=== PATIENT | male | born 1985 | race Caucasian/White ===

== ENCOUNTER 2025-01-22 05:47 | Emergency (ER) | payer SELFPAY ==
--- NOTE | ~2025-01-22 | CT_ITS ---
EXAMINATION: CT BRAIN W/O DATE: 01/22/2025 07:51 INDICATION: Altered mental status TECHNIQUE: Computed tomography (CT) of the head was performed without intravenous contrast. The dose- length product was 605.33 mGy-cm. COMPARISON: No prior studies for comparison. FINDINGS: Normal brain parenchymal volume for age. Normal braswell-white differentiation. No acute intrac ranial hemorrhage, infarction, mass or mass effect. No ventriculomegaly or midline shift. Midline sagittal images demonstrate a normal corpus callosum, c raniovertebral junction and sella turcica. Basilar cisterns are patent. Paranasal sinuses and mastoids are pneumatized. No depressed skull fractures. IMPRESSION: 1. No acute intracranial abnormality. Reviewed, dictated and finalized at location B.
[2025-01-22 05:57] VITALS: BP 139/92; PULSE 86; RESP 20; TEMP 36.7; O2SAT 99
[2025-01-22 06:15] LABS: Basophils Percent Auto 0.5 % (0.2-1.2); Eosinophils Absolute Auto 0.1 K/mm3 (0-0.3); Eosinophils Percent Auto 0.6 % (0-4.4); Hematocrit 42.2 % (42.0-52.0); Hemoglobin 15.3 g/dL (14.0-18.0); Immature Granulocyte Absolute 0.03 K/mm3 (0.00-0.031); Immature Granulocyte Percent A 0.3 % (0-0.5); Lymphocytes Absolute Auto 1.02 K/mm3 (0.9-3.2); Lymphocytes Percent Auto 11.6 % (18.3-44.2); Mean Corpuscular HGB Conc 36.3 g/dl (32-36); Mean Corpuscular Hemoglobin 31.5 pg (26-34); Mean Platelet Volume 10.4 fl (7.4-10.4); Monocytes Absolute Auto 0.2 K/mm3 (0.1-0.6); Monocytes Percent Auto 2.5 % (2.6-8.5); Neutrophils Absolute Auto 7.4 K/mm3 (1.3-6.7); Neutrophils Percent Auto 84.5 % (45.5-73.1); Platelet Count Result 329 k/mm3 (150-375); Red Blood Count 4.85 M/mm3 (4.6-6.20); Red Cell Distribution Width 11.9 % (11.5-14.5); White Blood Count 8.8 K/mm3 (4.5-10.0)
[2025-01-22 06:23] LABS: Add Urine Microscopic? YES; Appearance Urine Cloudy (Clear); Bacteria Urine None Seen /hpf; Bilirubin Urine Negative (Negative); Blood Urine Negative (Negative); Color Urine Yellow (Yellow); Glucose Urine UA Negative (Negative); Ketones Urine Negative (Negative); Leukocyte Esterase Ur Negative LEU/UL (Negative); Nitrate Urine Negative (Negative); Non Pathogenic Casts 0-2; Protein Urine Negative (Negative); RBC Urine 0-2 /hpf (0-2); Squamous Epithelial Cell Urine None Seen /hpf (Few); WBC Urine 0-5 /hpf (0-3); pH Urine 7.5 (5.0-9.0)
[2025-01-22 06:26] LABS: Alanine Aminotransferase 20 U/L (6-50); Albumin Level 4.5 g/dL (3.5-5.1); Alkaline Phosphatase 59 U/L (38-126); Anion Gap 12 mmol/L (4-12); Aspartate Amino Transferase 22 U/L (17-59); Bilirubin,Total 0.6 mg/dL (0.2-1.3); Blood Urea Nitrogen 10 mg/dL (9-20); Calcium 9.7 mg/dL (8.4-10.2); Carbon Dioxide 20 mmol/L (22-30); Chloride 103 mmol/L (98-107); Estimated CRCL calculation 72 ml/min; Estimated Glomerular Filt Rate > 60; Glucose 126 mg/dL (65-110); Potassium 4.1 mmol/L (3.4-5.0); Sodium 135 mmol/L (137-145)
[2025-01-22 06:29] LABS: Ethanol < 10 mg/dL (<10)
[2025-01-22 06:34] LABS: Amphetamine Screen Urine Negative (Negative); Barbiturate Screen Urine Negative (Negative); Benzodiazepines Screen Urine Positive (Negative); Cannabinoid Screen Urine Positive (Negative); Cocaine Screen Urine Negative (Negative); Methadone Screen Urine Negative (Negative); Opiate Screen Urine Negative (Negative); Phencyclidine Screen Urine Negative (Negative)
[2025-01-22 06:54] LABS: Influenza A QL RT-PCR Negative (Negative); Influenza B QL RT-PCR Negative (Negative); RSV RNA, RT-PCR Negative (Negative); SARS-CoV-2 RNA PCR Negative (Negative)
--- NOTE | 2025-01-22 07:16 | PC.NURSE ---
Lab called to add on additional lab orders
--- NOTE | 2025-01-22 07:34 | PC.NURSE ---
Lab called X2 about add on labs
--- NOTE | 2025-01-22 07:35 | PC.NURSE ---
Patient sitting in room. Patient calm and cooperative at this time. Process of seeing provider and crisis coming for evaluation explained to patient. Patient verbalized understanding. Patient adamant about not wanting to return to [place] or [place] due to being treated poorly .
--- OUTSIDE RECORDS SUMMARY | 2025-01-22 07:41 | XMS_ITS | Referral Summary ---
Author Organization [facility] Address [address] [place] [address] Care Team Providers Care Teacher Industrial Arts Name Role Phone Rachele Meza MD Primary Care Provider [phone] Hiro Francis DPT Unavailable [phone] Melissa Brower B.A. Unavailable Eduardo Fairchild PTA Unavailable Unavailable Frank Bautista MD Unavailable Allergies No known active allergies Medications lamoTRIgine (LaMICtal) 200 mg tablet Take 200 mg by mouth. Active triamcinolone (NASACORT) 55 mcg nasal inhaler Administer 2 sprays into each nostril daily. 16.5 g 3 8 Active ibuprofen (ADVIL,MOTRIN) 800 mg tablet Take 1 tablet (800 mg total) by mouth 3 (three) times a day as needed for pain. Take with food. 30 tablet 8 Active cyclobenzaprine (FLEXERIL) 10 mg tablet Take 1 tablet (10 mg total) by mouth 2 (two) times a day as needed for muscle spasms. 20 tablet 8 Active HYDROcodone-bill taminophen (NORCO) 5-325 mg per tabletIndicatio ns:Pain Take 1-2 tablets by mouth every 4 (four) hours as needed for pain (1 tablet for mild to moderate pain or 2 tablets for severe pain). Do not exceed 8 tablets/day. 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 Gender Identity Not on file Sexual Orientation Not on file Last Filed Vital Signs Vital Sign Reading Time Taken Comments Blood Pressure 119/78 01/13/2019 2:50 PM CDT Pulse 89 06/09/2018 12:28 AM CDT Temperature 37.1 C (98.7 F) 06/08/2018 9:19 PM CDT Respiratory Rate 16 06/09/2018 12:28 AM CDT Oxygen Saturation 96% 06/09/2018 12:28 AM CDT Inhaled Oxygen Concentration - - Weight 63.5 kg (140 lb) 01/13/2019 2:50 PM CDT Height 175.3 cm (5' 9 ) 01/13/2019 2:50 PM CDT Body Mass Index 20.67 01/13/2019 2:50 PM CDT Plan of Treatment Not on file Insurance CIGNA CIGNA Care Teams Teacher Industrial Arts Relationship Specialty Start Date End Date Rachele Meza MD [address] [place] [address] PCP - General Internal Medicine 06/23/18 Hiro Francis DPT [address] [facility] [address] [place] [address] Physical Therapist Physical Therapy 06/29/18 Melissa Brower BSanam 06/29/18 Eduardo Crockett [facility] Dry End Operator Physical Therapy 07/10/18 Frank Bautista MD [address] [place] [address] Consulting Physician Neurosurgery 07/28/18
--- OUTSIDE RECORDS SUMMARY | 2025-01-22 07:41 | XMS_ITS | Clinical Summary ---
Author Organization [facility] Address [address] [place] [address] Care Team Providers Care Outdoor Advertising Leasing Agent Name Role Phone Pcp, No Primary Care Provider [phone] Allergies No known active allergies Encounters Date Type Department Care Team Description 01/04/2025 8:04 PM QUENCHING MACHINE OPERATOR - 01/04/2025 9:18 PM QUENCHING MACHINE OPERATOR Emergency [facility] Emergency Dept [address] [place] [address] Kristal Grewal MD Concussion (Primary Dx); Dizziness; Hyponatremia Discharge Disposition: Home or Self Care 01/04/2025 Travel from Last 3 Months Social History Tobacco Use Types Packs/Day Years Used Date Smoking Tobacco: Never Assessed NCSS - Interpersonal Safety Answer Date Recorded Do you feel physically and e motionally safe where you currently live? Yes 01/04/2025 Within the past 12 months, h ave you been hit, slapped, kicked or otherwise physically hurt by someone? No 01/04/2025 Within the past 12 months, h ave you been humiliated or emotionally abused in other ways by your partner or ex-partner? No 01/04/2025 Interpersonal Safety Answer Date Record ed Unsafe Living Environment Not on file 2024 Abused by partner or someone else Not on file 01/04/2025 Is anyone misusing your pippa y, food, housing, and/or not allowing you to get medical treatment? 2 01/04/2025 Sex and Gender Information Value Date Recorded Sex Assigned at Not on file Legal Sex Male 5:32 PM QUENCHING MACHINE OPERATOR Gender Identity Not on file Sexual Orientation Not on file Last Filed Vital Signs Vital Sign Reading Time Taken Comments Blood Pressure 141/107 01/04/2025 5:36 PM QUENCHING MACHINE OPERATOR Pulse 83 01/04/2025 5:36 PM QUENCHING MACHINE OPERATOR Temperature 36.1 C (97 F) 01/04/2025 5:36 PM QUENCHING MACHINE OPERATOR Respiratory Rate 16 01/04/2025 5:36 PM QUENCHING MACHINE OPERATOR Oxygen Saturation 99% 01/04/2025 5:36 PM QUENCHING MACHINE OPERATOR Inhaled Oxygen Concentration - - Weight - - Height - - Body Mass Index - - Plan of Treatment Health Maintenance Due Date Last Done Comments Annual Wellness Exam with PC P (Rolling Yr) 1985 Hepatitis C Screening 2001 DTaP,Tdap,and Td Vaccines (1 - Tdap) 2002 Hepatitis B Vaccines (1 of 3 - 19+ 3-dose series) 2002 Influenza Vaccine (#1) 2024 COVID-19 Vaccine (3 - 2023-2 5 season) 2024 02/27/2021, 02/06/2021 Hepatitis A Vaccines Aged Out No long er eligible based on patient's age to complete this topic Meningococcal Vaccine Aged Out No george paramjit eligible based on patient's age to complete this topic Pneumococcal Vaccine: Peds (0-5 Yrs) or At-Risk Patients (6-49 Yrs) Aged Out No longer eligible b ased on patient's age to complete this topic Procedures Procedure Name Priority Date/Time Associated Diagnosis Comments CT BRAIN WO CONTRAST STAT 01/04/2025 8:34 PM QUENCHING MACHINE OPERATOR ECG 12-LEAD STAT 01/04/2025 6:14 PM QUENCHING MACHINE OPERATOR MORPHOLOGY STAT 01/04/2025 6:03 PM QUENCHING MACHINE OPERATOR ETHANOL (ALCOHOL) LEVEL, BLOOD STAT 01/04/2025 6:03 PM QUENCHING MACHINE OPERATOR COMPREHENSIVE METABOLIC PANEL STAT 01/04/2025 6:03 PM QUENCHING MACHINE OPERATOR CBC WITH DIFFERENTIAL STAT 01/04/2025 6:03 PM QUENCHING MACHINE OPERATOR from Last 3 Months Results * CT Brain Without Contrast (01/04/2025 8:34 PM QUENCHING MACHINE OPERATOR) Anatomical Region Laterality Modality Head Computed Tomogra phy 01/04/2025 8:39 PM QUENCHING MACHINE OPERATOR Impressions 01/04/2025 8:50 PM QUENCHING MACHINE OPERATOR No evidence of acute intracranial hemorrhage. The CT scan was performed with attention to patient radiation dose reduction, as low as reasonably achievable (ALARA), while maintaining diagnostic image quality. At least one of the following dose reduction techniques was used: Automated exposure control, adjustment of the mA and/or KV according to patient size or use of iterative reconstruction technique Number of known CT and cardiac nuclear medicine studies in the past 12 months is permanently stored in the patient's medical record and can be provided upon request. Narrative 01/04/2025 8:50 PM QUENCHING MACHINE OPERATOR NONCONTRAST CT OF THE HEAD HISTORY: Confusion and dizziness. COMPARISON: None TECHNIQUE: CT of the head was performed without intravenous contrast. FINDINGS: BRAIN PARENCHYMA: No acute parenchymal hemorrhage. No mass effect or herniation. Adair-white differentiation is maintained. White matter is within normal limits for age. VENTRICLES/EXTRA-AXIAL SPACES:Cortical sulci and ventricular system are nonenlarged. No hydrocephalus or extra-axial fluid collections. EXTRACRANIAL STRUCTURES: No evidence of acute fracture. Visualized paranasal sinuses and mastoids are clear. The orbits are grossly unremarkable. Procedure Note Brianne Monroe MD - 01/04/[address] OF THE HEAD HISTORY: Confusion and dizziness. COMPARISON: None TECHNIQUE: CT of the head was performed without intravenous contrast. FINDINGS: BRAIN PARENCHYMA: No acute parenchymal hemorrhage. No mass effect or herniation. Adair-white differentiation is maintained. White matter is within normal limits for age. VENTRICLES/EXTRA-AXIAL SPACES:Cortical sulci and ventricular system are nonenlarged. No hydrocephalus or extra-axial fluid collections. EXTRACRANIAL STRUCTURES: No evidence of acute fracture. Visualized paranasal sinuses and mastoids are clear. The orbits are grossly unremarkable. IMPRESSION: No evidence of acute intracranial hemorrhage. The CT scan was performed with attention to patient radiation dose reduction, as low as reasonably achievable (ALARA), while maintaining diagnostic image quality. At least one of the following dose reduction techniques was used: Automated exposure control, adjustment of the mA and/or KV according to patient size or use of iterative reconstruction technique Number of known CT and cardiac nuclear medicine studies in the past 12 months is permanently stored in the patient's medical record and can be provided upon request. Number 1 [employer] Xiomara LUND-C IMG CT ORDERABLES Final Result * ECG 12-Lead (01/04/2025 6:14 PM QUENCHING MACHINE OPERATOR) 01/04/2025 6:14 PM QUENCHING MACHINE OPERATOR 01/05/2025 7:06 AM QUENCHING MACHINE OPERATOR Narrative [facility] - 01/04/2025 6:14 PM QUENCHING MACHINE OPERATOR --- Final ECG Report --- NORMAL SINUS RHYTHM NORMAL ECG NO PREVIOUS ECGS AVAILABLE Procedure Note Srinivas Max MD - 01/05/2025 --- Final ECG Report --- NORMAL SINUS RHYTHM NORMAL ECG NO PREVIOUS ECGS AVAILABLE BackTypenabil Guiterrez PA-C ECG ORDERABLES Final Result [facility] [address] [place] [address] * (ABNORMAL) Morphology (01/04/2025 6:03 PM QUENCHING MACHINE OPERATOR) RBC Morphology See Morphology 01/04/2025 7:12 PM [facility] Comment:Giant Platelets Pres ent Smear visually reviewed by Technologist Polychromasia 1+(A) Not Present 01/04/2025 7:12 PM [facility] Blood Butterfly / Unknown 01/04/2025 6:03 PM QUENCHING MACHINE OPERATOR 01/04/2025 6:14 PM QUENCHING MACHINE OPERATOR us Xiomara Gutierrez PA-C LAB STAT BLOOD ORDERABLES Alexa l Result [facility] [address] [place] [address] * (ABNORMAL) CBC with Differential (01/04/2025 6:03 PM QUENCHING MACHINE OPERATOR) Auto WBC 7.0 3.7 - 10.4 10*3 /uL 01/04/2025 7:12 PM [facility] NRBCs Absolute Count 0.00 <=0.01 10*3 /uL 01/04/2025 7:12 PM [facility] NRBC Relative percent 0 <=0 /100 WBC 01/04/2025 7:12 PM [facility] RBC 4.65 4.35 - 5.56 10*6 /uL 01/04/2025 7:12 PM [facility] Hemoglobin 14.5 13.2 - 16.8 g/dL 01/04/2025 7:12 PM [facility] Hematocrit 39.0(L) 39.2 - 48.8 % 01/04/2025 7:12 PM [facility] MCV 83.9 81.2 - 96.7 fL 01/04/2025 7:12 PM [facility] MCH 31.2 27.5 - 33.1 pg 01/04/2025 7:12 PM [facility] MCHC 37.2(H) 32.1 - 36.1 g/dL 01/04/2025 7:12 PM [facility] RDW 12.7 12.4 - 14.3 % 01/04/2025 7:12 PM [facility] Platelets 305 131 - 340 10*3/uL 01/04/2025 7:12 PM [facility] MPV 10.2 8.7 - 12.7 fL 01/04/2025 7:12 PM [facility] Neutrophils Relative 66.3 % 01/04/2025 7:12 PM [facility] Immature Granulocytes Relative 0.3 % 01/04/2025 7:12 PM [facility] Lymphocytes Relative 22.5 % 01/04/2025 7:12 PM [facility] Monocytes Relative 8.5 % 01/04/2025 7:12 PM [facility] Eosinophils Relative 2.0 % 01/04/2025 7:12 PM [facility] Basophils Relative 0.4 % 01/04/2025 7:12 PM [facility] Neutrophils Absolute 4.7 1.6 - 6.4 10*3/uL 01/04/2025 7:12 PM [facility] Immature Granulocytes Absolute 0.0 0.0 - 0.1 10*3/uL 01/04/2025 7:12 PM [facility] Lymphocytes Absolute 1.6 0.6 - 3.3 10*3/uL 01/04/2025 7:12 PM [facility] Monocytes Absolute 0.6 0.2 - 1.2 10*3/uL 01/04/2025 7:12 PM [facility] Eosinophils Absolute 0.1 0.0 - 0.4 10*3/uL 01/04/2025 7:12 PM [facility] Basophils Absolute 0.0 0.0 - 0.1 10*3/uL 01/04/2025 7:12 PM [facility] Blood Butterfly / Unknown 01/04/2025 6:03 PM QUENCHING MACHINE OPERATOR 01/04/2025 6:14 PM QUENCHING MACHINE OPERATOR BackTypen Spectrum5ole PA-C LAB STAT BLOOD ORDERABLES Alexa l Result [facility] [address] [place] [address] * Ethanol (Alcohol) Level, Blood (01/04/2025 6:03 PM QUENCHING MACHINE OPERATOR) Ethanol Level <0.010 <0.010 g/dL 01/04/2025 6:38 PM [facility] Blood Butterfly / Unknown 01/04/2025 6:03 PM QUENCHING MACHINE OPERATOR 01/04/2025 6:14 PM QUENCHING MACHINE OPERATOR BackTypen Spectrum5ole PA-C LAB STAT BLOOD ORDERABLES Alexa l Result [facility] [address] [place] [address] * (ABNORMAL) Comprehensive Metabolic Panel (01/04/2025 6:03 PM [facility]) Total Protein 6.5 5.7 - 8.2 g/dL 01/04/2025 6:39 PM [facility] Albumin 4.4 3.3 - 5.2 g/dL 01/04/2025 6:39 PM [facility] Globulin 2.1 1.9 - 3.5 g/dL 01/04/2025 6:39 PM [facility] Comment:Please note new refe rence range. A/G Ratio 2.1 1.0 - 2.6 01/04/2025 6:39 PM [facility] Total Bilirubin 0.8 0.1 - 1.2 mg/dL 01/04/2025 6:39 PM [facility] Alkaline Phosphatase 53 46 - 116 U/L 01/04/2025 6:39 PM [facility] AST 18 13 - 40 U/L 01/04/2025 6:39 PM [facility] ALT 16 10 - 49 U/L 01/04/2025 6:39 PM [facility] BUN 9 9 - 23 mg/dL 01/04/2025 6:39 PM [facility] Creatinine 1.13 0.60 - 1.30 mg/dL 01/04/2025 6:39 PM [facility] BUN/Creatinine Ratio 8.0(L) 10.0 - 20.0 01/04/2025 6:39 PM [facility] Calcium 9.5 8.7 - 10.4 mg/dL 01/04/2025 6:39 PM [facility] Glucose 94 70 - 99 mg/dL 01/04/2025 6:39 PM [facility] Sodium 128(L) 136 - 145 mmol/L 01/04/2025 6:39 PM [facility] Potassium 3.8 3.5 - 5.1 mmol/L 01/04/2025 6:39 PM [facility] Chloride 95(L) 98 - 107 mmol/L 01/04/2025 6:39 PM [facility] CO2 22 21 - 32 mmol/L 01/04/2025 6:39 PM QUENCHING MACHINE OPERATOR [facility] Anion Gap 11 4 - 12 01/04/2025 6:39 PM QUENCHING MACHINE OPERATOR [facility] GFR >60 >60 mL/min/1. 73 sq.m 01/04/2025 6:39 PM QUENCHING MACHINE OPERATOR [facility] Comment:Calculation based on the Chronic Kidney Disease Epidemiology Collaboration (CKD-EPI) equation refit without adjustment for race. Blood Butterfly / Unknown 01/04/2025 6:03 PM QUENCHING MACHINE OPERATOR 01/04/2025 6:14 PM QUENCHING MACHINE OPERATOR us Xiomara Gutierrez PA-C LAB STAT BLOOD ORDERABLES Alexa l Result [facility] [address] [place] [address] from Last 3 Months Care Teams Outdoor Advertising Leasing Agent Relationship Specialty Start Date End Date Pcp, No [address] [place] [address] PCP - General 01/04/25
--- OUTSIDE RECORDS SUMMARY | 2025-01-22 07:41 | XMS_ITS | Clinical Summary ---
Author Organization [facility] Address [address] [place] [address] Care Team Providers Care Sheet Metal Assembler And Riveter Name Role Phone Rachele Meza MD Primary Care Provider [phone] Hiro Francis DPT Unavailable [phone] Melissa Brower B.A. Unavailable Eduardo Fairchild PTA Unavailable Unavailable Frank Bautista MD Unavailable [phone] Allergies No known active allergies Medications lamoTRIgine [...] SARS-CoV-2 Monovalent Vaccination (12+ Yrs) PURPLE 02/27/2021,02/06/2021 Surgical History Surgery Date Site/Laterality Comments HERNIA REPAIR WISDOM TOOTH EXTRACTION Medical History Medical History Date Comments Bipolar disorder (HCC) Family History Medical History Relation Name Comments No Known Problems Father No Known Problems Mother Relation Name Status Comments Father Mother Social History Tobacco Use Types Packs/Day Years Used Date Smoking Tobacco: Former Smokeless Tobacco: Never Personal Safety Answer Date Recorded Getting School Help Needed Not on file 12/28 Sex and Gender Information Value Date Recorded Sex Assigned at Not on file Legal Sex Male 9:54 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 Gender Identity Not on file Sexual Orientation Not on file Obstetrics History Last Filed Vital Signs Vital Sign Reading [...] 01/13/2019 2:50 PM CDT Plan of Treatment Health Maintenance Due Date Last Done Comments Depression Screening 1983 Hepatitis C Screening 1983 Varicella Vaccines (1 of 2 - 13+ 2-dose series) 1996 Hepatitis B Screening 2001 Regular Well Visit/Exam 18-64 2001 Covid-19 Vaccine (3 - 2023-2 5 season) 2024 02/27/2021, 02/06/2021 Influenza Vaccine (#1) 2024 9, 08/06/2018 DTaP/Tdap/Td Vaccine (2 - Td or Tdap) 06/16/2027 06/16/2017 HPV Vaccines Aged Out No longer eligi ble based on patient's age to complete this topic Pneumococcal vaccine <65 Aged Out No longer eligible based on patient's age to complete this topic Insurance CIGNA CIGNA Care Teams Sheet Metal Assembler And Riveter Relationship Specialty Start Date End Date Rachele Meza MD [address] [facility] [address] [place], [place] [id number] PCP - General Internal Medicine 06/23/18 Hiro Francis DPT [address] [facility] [address] [place], [place] [id number] Physical Therapist Physical Therapy 06/29/18 Melissa Brower B.A. 06/29/18 Eduardo Crockett [facility] Lab Systems Analyst Physical Therapy 07/10/18 Frank Bautista MD [address] [place] [address] Consulting Physician Neurosurgery 07/28/18
[2025-01-22 07:44] LABS: Magnesium 1.8 mg/dL (1.6-2.3)
--- NOTE | 2025-01-22 08:15 | ED.GENADULT ---
HPI - General Adult General Chief complaint: Psychiatric Symptoms Stated complaint: anxiety/hallucinations Time Seen by Provider: 01/22/25 06:57 History of Present Illness HPI narrative: 39-year-old male present to the emergency department for evaluation increased paranoia and delusions of gangs attempting to harm him. Patient does have history of alcohol withdrawal, bipolar, anxiety, schizophrenia, schizoaffective disorder. Patient states he was recently at [facility] for alcohol withdrawal and was transferred to [place]. Patient states he has been getting his medications there but he is unsure of what doses they are giving him. Patient presented to emergency department today requesting inpatient hospitalization because he does not feel safe at [place] due to increasing paranoia. Related Data Allergies Allergy/AdvReac Type Severity Reaction Status Date / Time No Known Allergies Allergy Verified 01/22/25 08:21 Review of Systems Review of Systems: All systems reviewed & are unremarkable except as noted in HPI and below PMFSH Social History Social History Substance use type: former substance user and unknown Exam Narrative: APPEARANCE: Well appearing, no pain, no distress, well-nourished. HEAD: normocephalic, atraumatic. EYES: PERRLA/EOMI, conjunctivae clear. NOSE: Normal no drainage EARS:TMS clear with good light reflex. THROAT: Pharynx clear, no exudate. NECK: Supple. No adenopathy, no masses. RESPIRATORY: Airway patent, respirations nonlabored. Clear to auscultation bilaterally, no rales, rhonchi, wheezing. CARDIOVASCULAR: Regular rate and rhythm without murmurs rubs or gallops. ABDOMINAL: Soft, nontender, nondistended, normal bowel sounds MUSCULOSKELETAL: Moves all extremities. Strength/ROM intact, No edema, No calf tenderness. NEURO: Alert. Cranial nerves II through XII intact. Good gait. Good coordination SKIN: Warm, dry. Normal Color PSYCHIATRIC: Anxious affect Course Vital Signs Vital signs: Vital Signs Temperature 98.0 F 01/22/25 05:57 Pulse Rate 86 01/22/25 05:57 Respiratory Rate 20 01/22/25 05:57 Blood Pressure 139/92 H 01/22/25 05:57 Pulse Oximetry 99 01/22/25 05:57 Oxygen Delivery Room Air 01/22/25 05:57 Temperature 98.0 F 01/22/25 05:57 Pulse Rate 86 01/22/25 05:57 Respiratory Rate 20 01/22/25 05:57 Blood Pressure 139/92 H 01/22/25 05:57 Pulse Oximetry 99 01/22/25 05:57 Oxygen Delivery Room Air 01/22/25 05:57 Medical Decision Making MDM Narrative Medical decision making narrative: 19-year-old male present to the emergency department evaluation for increased paranoid delusions. Patient was able to be least temp earlier reassured that the gangs [facility] or not here to get him and that he is in a safe environment at this time. Patient was willing to have some Ativan for anxiety control. Patient is requesting inpatient psychiatric hospitalization. Patient is afebrile with no leukocytosis and a hemoglobin of 15.3 P. Patient has no significant abnormalities on his CMP and TSH is within normal limits. UA was negative for infection. Patient did test positive for benzos and cannabinoids. Patient states he had been Librium up to approximately 2 weeks ago. Patient was negative for influenza RSV and for COVID patient's head CT was negative. 8:21 a.m. patient is medically cleared for evaluation by crisis. Patient is medically cleared for transportation and inpatient hospitalization as needed. Patient preferred to go to [facility] but they do not have any psych beds available. Patient does not meet inpatient criteria and is not a threat to himself. Patient prefers to be discharged to home. Patient does have family members who are coming to pick him up. Prior to discharge patient denies any homicidal or suicidal ideation. Patient was prescribed his home medication propanolol, Lamictal and Seroquel. Patient was also given a small prescription for Ativan. Differential Diagnosis Differential Diagnosis: Bipolar, schizophrenia, delusional, subdural hematoma, subarachnoid hemorrhage, benzo withdrawal Vital Signs Vital Signs: Vital Signs Temperature 98.0 F 01/22/25 05:57 Pulse Rate 86 01/22/25 05:57 Respiratory Rate 20 01/22/25 05:57 Blood Pressure 139/92 H 01/22/25 05:57 Pulse Oximetry 99 01/22/25 05:57 Oxygen Delivery Room Air 01/22/25 05:57 Temperature 98.0 F 01/22/25 05:57 Pulse Rate 86 01/22/25 05:57 Respiratory Rate 20 01/22/25 05:57 Blood Pressure 139/92 H 01/22/25 05:57 Pulse Oximetry 99 01/22/25 05:57 Oxygen Delivery Room Air 01/22/25 05:57 Lab Data Lab results reviewed: Yes I reviewed the patient's lab results. 01/22/25 06:06 01/22/25 06:05 Labs: Lab Results 01/22/25 01/22/25 01/22/25 Range/Units 06:05 06:06 06:06 WBC 8.8 (4.5-10.0) K/mm3 RBC 4.85 (4.6-6.20) M/mm3 Hgb 15.3 (14.0-18.0) g/dL Hct 42.2 (42.0-52.0) % MCV 87.0 (80-100) fl MCH 31.5 (26-34) pg MCHC 36.3 H (32-36) g/dl RDW 11.9 (11.5-14.5) % Plt Count 329 (150-375) k/mm3 MPV 10.4 (7.4-10.4) fl Immature Gran % (Auto) 0.3 (0-0.5) % Neut % (Auto) 84.5 H (45.5-73.1) % Lymph % (Auto) 11.6 L (18.3-44.2) % [place] % (Auto) 2.5 L (2.6-8.5) % Eos % (Auto) 0.6 (0-4.4) % Baso % (Auto) 0.5 (0.2-1.2) % Lymph # (Auto) 1.02 (0.9-3.2) K/mm3 [place] # (Auto) 0.2 (0.1-0.6) K/mm3 Eos # (Auto) 0.1 (0-0.3) K/mm3 Baso # (Auto) 0.0 (0.0-0.1) K/mm3 Abs Immat Gran (auto) 0.03 (0.00-0.031) K/mm3 Absolute Neuts (auto) 7.4 H (1.3-6.7) K/mm3 Absolute Nucleated RBC 0.000 (0.0-0.012) K/mm3 Nucleated RBC % 0.0 (0.0-0.2) % Sodium 135 L (137-145) mmol/L Potassium 4.1 (3.4-5.0) mmol/L Chloride 103 (98-107) mmol/L Carbon Dioxide 20 L (22-30) mmol/L Anion Gap 12 (4-12) mmol/L BUN 10 (9-20) mg/dL Creatinine 0.91 (0.7-1.3) mg/dL Estim Creat Clear Calc 72 ml/min Estimated GFR > 60 (59 - ) Glucose 126 H (65-110) mg/dL Calcium 9.7 (8.4-10.2) mg/dL Magnesium 1.8 (1.6-2.3) mg/dL Total Bilirubin 0.6 (0.2-1.3) mg/dL AST 22 (17-59) U/L ALT 20 (6-50) U/L Alkaline Phosphatase 59 (38-126) U/L Total Protein 7.0 (6.3-8.2) g/dL Albumin 4.5 (3.5-5.1) g/dL TSH (Reflex) 1.460 1.440 (0.465-4.68) uIU/mL Urine Color Yellow (Yellow) Urine Appearance Cloudy H (Clear) Urine pH 7.5 (5.0-9.0) Ur Specific [place] 1.020 (1.001-1.035) Urine Protein Negative (Negative) mg/dL Urine Glucose (UA) Negative (Negative) mg/dL Urine Ketones Negative (Negative) mg/dL Ur Blood (Man) Negative (Negative) Urine Nitrate Negative (Negative) Urine Bilirubin Negative (Negative) Urine Urobilinogen 1.0 (<2.0) mg/dL Leukocyte Esterase Rfl Negative (Negative) CHITO/UL Urine RBC 0-2 (0-2) /hpf Urine WBC 0-5 (0-3) /hpf Ur Squamous Epith Cells None seen (Few) /hpf Urine Bacteria None seen /hpf Urine Casts 0-2 Urine Opiates Screen Negative (Negative) Urine Methadone Screen Negative (Negative) Ur Barbiturates Screen Negative (Negative) Ur Phencyclidine Scrn Negative (Negative) Ur Amphetamine Screen Negative (Negative) U Benzodiazepines Scrn Positive A (Negative) Urine Cocaine Screen Negative (Negative) U Cannabinoids Screen Positive A (Negative) Ethyl Alcohol < 10 (<10) mg/dL Influenza A (RT-PCR) Negative (Negative) Influenza B (RT-PCR) Negative (Negative) RSV (RT-PCR) Negative (Negative) SARS-CoV-2 RNA (RT-PCR) Negative (Negative) Imaging Data Radiologist's impression: Impressions Head CT 01/22/25 07:53 IMPRESSION: 1. No acute intracranial abnormality. Discharge Plan Discharge Clinical Impression: Paranoid delusion, Anxiety Patient Disposition: Home, Self-Care Condition: Stable Instructions: Antibiotic Form Additional Instructions: Have close follow-up with your physicians. If you have any worsening symptoms then please call or return to the emergency department. Patient Language: Micronesian Prescriptions: New quetiapine [Seroquel] 50 mg tablet 50 mg PO HS 14 Days Qty: 14 0RF propranolol 10 mg tablet 10 mg PO DAILY 14 Days Qty: 14 0RF lamotrigine [Lamictal] 200 mg tablet 200 mg PO DAILY 14 Days Qty: 14 0RF lorazepam [Ativan] 0.5 mg tablet 0.5 mg PO BID PRN (Reason: anxiety) 3 Days Qty: 6 0RF Follow-up/Referrals: PHYSICIAN,TECHNOLOGY RESOURCE TEACHER [Primary Care Provider] -
[2025-01-22] MEDS: Please add drug allergy info to patient profile. 1 EACH XX (08:22)
[2025-01-22] MEDS: LORazepam (*CRX) 1 MG TABLET PO (08:25)
== END 2025-01-22 09:54 | disposition home or self-care (01) ==
PROVIDERS: Emergency Medicine; Emergency Provider Emergency Medicine
DX: F22 Delusional disorders (principal); F41.9 Anxiety disorder, unspecified; Z11.52 Encounter for screening for COVID-19; F31.9 Bipolar disorder, unspecified; F20.9 Schizophrenia, unspecified
CPT/HCPCS: 36415; 70450; 80053; 80307; 81001; 82077; 83735; 84443; 85025; 87637; 99284; A9270

== ENCOUNTER 2025-01-23 01:21 | Emergency (ER) | payer BC, SELFPAY ==
[2025-01-23 01:20] VITALS: BP 157/99; PULSE 102; RESP 20; TEMP 37.1; O2SAT 100
--- NOTE | 2025-01-23 01:38 | ED_ITS ---
HPI - General Adult General Chief complaint: Psychiatric Symptoms Stated complaint: Paranoia, smoked cannabis Time Seen by Provider: 01/23/25 01:30 History of Present Illness HPI narrative: Patient is a 39-year-old gentleman presents emergency department with chief complaint of feeling anxious. The patient reports that he was unable to get his medicines filled and reports that he smokes some marijuana the patient reports he feels anxious and would like his medicines the patient denies suicidal or homicidal ideation Related Data Allergies Allergy/AdvReac Type Severity Reaction Status Date / Time No Known Allergies Allergy Verified 01/22/25 08:21 Review of Systems Review of Systems: A 10 system review of systems was completed on the patient and is negative except for what is stated in the HPI. Nursing and ancillary documentation was reviewed. [facility] Social History Social History Substance use type: former substance user and unknown Exam Narrative: GENERAL: Well-appearing, well-nourished, and in no acute distress. HEAD: Normocephalic, atraumatic. EYES: PERRLA and EOMI. ENT: Nares clear, no rhinorrhea or epistaxis. Mucous membranes moist. NECK: Supple. CHEST: Clear to auscultation. No respiratory distress. HEART: Regular rate and rhythm. No murmur heard. Normal peripheral pulses. ABDOMEN: Soft, nontender, nondistended, normal active bowel sounds. EXTREMITIES: Normal range of motion. No edema. SKIN: Warm, dry, no rash. NEURO: No focal deficits. Alert and oriented x3. PSYCH: Normal mood and affect. Course Vital Signs Vital signs: Vital Signs Temperature 37.1 C 01/23/25 01:20 Pulse Rate 102 H 01/23/25 01:20 Respiratory Rate 20 01/23/25 01:20 Blood Pressure 157/99 H 01/23/25 01:20 Pulse Oximetry 100 01/23/25 01:20 Oxygen Delivery Room Air 01/23/25 01:20 Temperature 37.1 C 01/23/25 01:20 Pulse Rate 102 H 01/23/25 01:20 Respiratory Rate 20 01/23/25 01:20 Blood Pressure 157/99 H 01/23/25 01:20 Pulse Oximetry 100 01/23/25 01:20 Oxygen Delivery Room Air 01/23/25 01:20 Medical Decision Making [facility] Narrative Medical decision making narrative: Differential diagnosis the chronic psychosis, delusional disorder The patient is not suicidal or homicidal currently not a threat to himself Vital Signs Vital Signs: Vital Signs Temperature 37.1 C 01/23/25 01:20 Pulse Rate 102 H 01/23/25 01:20 Respiratory Rate 20 01/23/25 01:20 Blood Pressure 157/99 H 01/23/25 01:20 Pulse Oximetry 100 01/23/25 01:20 Oxygen Delivery Room Air 01/23/25 01:20 Temperature 37.1 C 01/23/25 01:20 Pulse Rate 102 H 01/23/25 01:20 Respiratory Rate 20 01/23/25 01:20 Blood Pressure 157/99 H 01/23/25 01:20 Pulse Oximetry 100 01/23/25 01:20 Oxygen Delivery Room Air 01/23/25 01:20 Discharge Plan Discharge Clinical Impression: Paranoid delusion, Anxiety Patient Disposition: Home, Self-Care Condition: Stable Instructions: Antibiotic Form, Anxiety (ED) Additional Instructions: Please avoid using marijuana please get your medications filled from the pharmacy. It is recommended he follow up with community resources for mental health Patient Language: Spanish Prescriptions: No Action quetiapine [Seroquel] 50 mg tablet 50 mg PO HS 14 Days Qty: 14 0RF propranolol 10 mg tablet 10 mg PO DAILY 14 Days Qty: 14 0RF lamotrigine [Lamictal] 200 mg tablet 200 mg PO DAILY 14 Days Qty: 14 0RF lorazepam [Ativan] 0.5 mg tablet 0.5 mg PO BID PRN (Reason: anxiety) 3 Days Qty: 6 0RF Follow-up/Referrals: [facility] [Outside] PHYSICIAN,BUILDING SUPPLIES SALESPERSON RETAIL [Primary Care Provider] - Maurice Urbina MD [Physician] - Time of Disposition: 01:46
--- OUTSIDE RECORDS SUMMARY | 2025-01-23 01:50 | XMS_ITS | Continuity of Care Document ---
Author Organization [facility] Address [address] [place] [address] Phone Care Team Providers Care Water Server Name Role Phone Hiro Boyd MD Unavailable Unavailable Medications Medication Instructions Dosage Effective Dates (start - stop) Status Comments Lamictal 100 mg tablet - Active VITAMIN D3 (unknown strength) Not Available - Active VITAMIN B-12 (unknown strength) Not Available - Active FISH OIL (unknown strength) Not Available - Active ATIVAN (unknown strength) Not Available - Active Procedures Procedure Date X-ray exam knee, 4+ views Office/outpatient visit,[facility] 2018 Advance Directives Directive Yes / No Effective Date File Name No Information Encounters Encounter Description Practice Location Reason(s) For Visit Diagnoses Date Provider Providers Copied on Encounter Office/outpat ient visit,[facility], [address], [id number], tel:[phone] [facility] left knee pain (chief complaint) Iliotibial band syndrome, left leg Deb Bocsh. [address], [place], [place], [id number] , [place]. tel:[phone] Family History Family Member Type Diagnosis Age At Onset Brother Problem (finding) Depression Sister Problem (finding) Depression Brother Problem (finding) Gout Mother Problem (finding) Osteoarthritis Father Problem (finding) Cancer, unknown Payers Payer name Insurance type Covered democrat ID Authoriza tion(s) [employer] CI [id number] Social History Type Description Quantity Date Captured Comments Alcohol Use Details Unknown Caffeine Use Details Unknown Tobacco Use Status No Information Smoking Status Former smoker Non-Smoking Tobacco Use Details : No Details Available : No Details Available Sex Male Vital Signs Date / Time: Height Weight BMI Pulse Rate Blood Pressure Temperature Respiratory Rate Body Surface Area Head Circumference Head Circ. Percentile Wt./[place]. Percentile BMI percentile Pulse Ox Inhaled Ox 10:52 AM 68.00 in 61.235 kg (135.00 lbs) 20.5 3 kg/m dom (2) Chief Complaint And Reason For Visit From encounter dated '03/03/2019 10:00'. left knee pain (chief complaint). Description: Mr Gonsalez is a 33 year old male who complains of left knee pain. He presents with pain and popping on the left side. He states that the symptoms have been chronic non-traumatic. The symptoms occur intermittently. The problem is unchanged. Currently the patient states that the symptoms are moderate. The pain is described as aching and dull. The symptoms occur with activity. The patient is experiencing pain in the following location: laterally based on the left side. He rates his current pain as 4/10. The symptoms are aggravated by ascending stairs, bent knee activities, sports and walking. Gerard states that the symptoms are relieved by ice and rest. In addition to left knee pain the patient is also experiencing cracking and popping. Pertinent negatives include chills, fever, locking and tingling. The patient has had a previous x-ray. He has had no previous treatment. Patient has not had any pertinent therapy for this condition. Patientharadha had no prior surgeries. He experienced no previous injury. Reason For Referral Reason For Referral No Information Plan Of Treatment Date Type Action Status Referral Ordered: X-ray exam knee, 4+ views LT knee ordered History Of Present Illness Encounter Date Complaint History Of Prese nt Illness left knee pain Mr Gonsalez is a 33 year old male who complains of left knee pain. He presents with pain and popping on the left side. He states that the symptoms have been chronic non-traumatic. The symptoms occur intermittently. The problem is unchanged. Currently the patient states that the symptoms are moderate. The pain is described as aching and dull. The symptoms occur with activity. The patient is experiencing pain in the following location: laterally based on the left side. He rates his current pain as 4/10. The symptoms are aggravated by ascending stairs, bent knee activities, sports and walking. Gerard states that the symptoms are relieved by ice and rest. In addition to left knee pain the patient is also experiencing cracking and popping. Pertinent negatives include chills, fever, locking and tingling. The patient has had a previous x-ray. He has had no previous treatment. Patient has not had any pertinent therapy for this condition. Patient has had no prior surgeries. He experienced no previous injury. Functional Status Date Functional Assessmen t No Information Instructions Date Instruction Additional Infor mation The patient was give n a prescription for a comprehensive physical therapy guided rehabilitation program, including not only quad and hamstring rehab but also the importance of hip and knee mechanics and core strengthening as well as stretching. They were also given icing instructions and we discussed the importance of this to the overall treatment regimen.If the patient is not improved in 6 to 8 weeks time after adherence to the PT program I will see them back for further evaluation and we may consider an injection into the ITB vs obtaining an MRI. We discussed if symptoms resolve we would see the patient back on an as needed basis. The patient understood and was happy with the plan and had all their questions answered in the office today. Related to Iliotibial band syndrome, left leg Assessments Type Assessment Date assessment Iliotibial band syndrome, left l eg impression We discussed in flavia ny the pathophysiology, symptoms, and treatment options of ITB symptoms. We discussed specifically the non-operative management of this problem, as well as the need for a comprehensive treatment program including icing, activity modifications, weight control/weight loss, and a detailed physical therapy regimen and the rare indications for injections and surgery. We discussed only in the setting of failed traditional management or if there are other atypical findings on exam would an MRI be indicated. After a thorough discussion the patient and I have agreed to proceed with the following treatment plan: Mental Status Date Cognitive Assessment Orientation - Bowman ed to time, place, person, situation.Normal Orientation Patient Care Teams Name Effective Dates (start - stop) Status Members No Information
--- OUTSIDE RECORDS SUMMARY | 2025-01-23 01:50 | XMS_ITS | Clinical Summary ---
Author Organization [facility] Address [address] [place] [address] Care Team Providers Care Logistics Planner Name Role Phone Rachele Meza MD Primary Care Provider [phone] Hiro Frnacis DPT Unavailable [phone] Melissa Brower B.A. 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 06/29/18 Eduardo Crockett [facility] Correction Officer Reformatory Physical Therapy 07/10/18 Frank Bautista MD [address] [place] [address] Consulting Physician Neurosurgery 07/28/18
--- OUTSIDE RECORDS SUMMARY | 2025-01-23 01:50 | XMS_ITS | Referral Summary ---
Author Organization [facility] Address [address] [place] [address] Care Team Providers Care Proof Tester Name Role Phone Rachele Meza MD Primary Care Provider [phone] Hiro Francis DPT Unavailable [phone] Melissa Brower B.A. 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 Book Or Script Editor Physical Therapy 07/10/18 Frank Bautista MD [address] [place] [address] Consulting Physician Neurosurgery 07/28/18
[2025-01-23] MEDS: LORazepam (*CRX) 1 MG TABLET PO (02:06)
[2025-01-23] MEDS: lamoTRIgine 100 MG TABLET 200 MG PO (02:06)
[2025-01-23] MEDS: QUEtiapine FUMARATE 25 MG TABLET 50 MG PO (02:06)
== END 2025-01-23 02:14 | disposition home or self-care (01) ==
PROVIDERS: Emergency Provider Emergency Medicine
DX: F22 Delusional disorders (principal); F41.9 Anxiety disorder, unspecified
CPT/HCPCS: 99283; A9270